=== PATIENT | female | born 1935 | race Caucasian/White ===

== ENCOUNTER 2021-01-07 17:27 | Emergency (ER) | payer OTHER ==
[~2021-01-07] VITALS: Ht 167.6 cm; Wt 100.7 kg
--- NOTE | 2021-01-07 18:13 | NUR ---
called Dr. HAQ via exchange
[2021-01-07 18:20] VITALS: BP 132/78
--- NOTE | 2021-01-07 18:25 | NUR ---
TO ER BED 3, C/O FALL WHILE WALKING IN THE KITCHEN, LEFT SHOULDER PAIN.
[2021-01-07] MEDS ORDERED: OXYC-128 PO (18:29)
[2021-01-07] MEDS ORDERED: HYDROCODONE/APAP 5/325MG TABLET ONE (19:07)
[2021-01-07] MEDS: HYDROCODONE/APAP 5/325MG TABLET PO ONE (19:15)
== END 2021-01-07 19:19 | disposition home or self-care (01) ==
LOC: ER 17:40
DX: S42.392A Other fracture of shaft of left humerus, initial encounter for closed fracture (principal); I10 Essential (primary) hypertension; E11.9 Type 2 diabetes mellitus without complications; W01.0XXA Fall on same level from slipping, tripping and stumbling without subsequent striking against object, initial encounter; Y93.89 Activity, other specified; Y92.89 Other specified places as the place of occurrence of the external cause; Y99.8 Other external cause status
CPT/HCPCS: 73030-TC; 73060-TC